=== PATIENT | male | born 1990 | race American Indian/Alaskan Native ===

== ENCOUNTER 2019-08-18 09:33 | Emergency (ER) | payer OTHER ==
[2019-08-18] MEDS ORDERED: MORPHINE 4 MG/1 ML INJ IV ONE (09:48)
[2019-08-18] MEDS ORDERED: ONDANSETRON 4 MG/2 ML INJ IV ONE (09:48)
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
--- NOTE | 2019-08-18 10:35 | XRay Report ---
BILATERAL SHOULDERS, 3 VIEWS INDICATION: shoulder dislocation. COMPARISON: None. IMPRESSION: No acute osseous or soft tissue abnormality. No significant DJD. The transscapular vi ews are limited but no obvious dislocation is appreciated. Signer Name: Jamari Moreno Jr, MD Signed: 08/18/2019 10:31 AM Workstation Name: [id number]
[2019-08-18 11:52] VITALS: BP 118/65
== END 2019-08-18 11:51 | disposition home or self-care (01) ==
LOC: ED 09:33
DX: S49.92XA Unspecified injury of left shoulder and upper arm, initial encounter (principal); F12.10 Cannabis abuse, uncomplicated; Z79.899 Other long term (current) drug therapy; V49.9XXA Car occupant (driver) (passenger) injured in unspecified traffic accident, initial encounter; Y93.89 Activity, other specified; Y92.410 Unspecified street and highway as the place of occurrence of the external cause; Y99.8 Other external cause status
CPT/HCPCS: 29105; 73030; 96374; 96375; 99283; J2270; J2405